=== PATIENT | male | born 1965 | race Caucasian/White ===

== ENCOUNTER 2017-08-18 07:30 | Day surgery (SDC) | payer BC ==
[~2017-08-18] VITALS: Ht 193 cm; Wt 146.5 kg
[~2017-08-18 07:30] MED LIST: Prinivil10 MG PO
== END 2017-08-18 10:08 | disposition home or self-care (01) ==
LOC: ORSCSDS 07:30
PROVIDERS: Internal Medicine Gastroenterology
PROC: 0DBH8ZX Excision of Cecum, Via Natural or Artificial Opening Endoscopic, Diagnostic (ICD-10-PCS; principal; 2017-08-18 09:00)
PROC: 0DBK8ZX Excision of Ascending Colon, Via Natural or Artificial Opening Endoscopic, Diagnostic (ICD-10-PCS; principal; 2017-08-18 09:00)
DX: Z12.11 Encounter for screening for malignant neoplasm of colon (principal); D12.0 Benign neoplasm of cecum; K63.5 Polyp of colon; K64.8 Other hemorrhoids; K57.30 Diverticulosis of large intestine without perforation or abscess without bleeding; G47.33 Obstructive sleep apnea (adult) (pediatric); I10 Essential (primary) hypertension; E66.9 Obesity, unspecified; Z68.39 Body mass index [BMI] 39.0-39.9, adult; Z79.899 Other long term (current) drug therapy
CPT/HCPCS: 88305; J1885; J2250; J7120

== ENCOUNTER → 2017-12-23 | Outpatient (CLI) | payer BC | END | disposition home or self-care (01) | LOC: PLD 13:20 → LAB SHORT 13:20 | DX: L82.1 Other seborrheic keratosis (principal) | CPT/HCPCS: 88305 ==

== ENCOUNTER → 2021-01-28 | Outpatient (CLI) | payer BC ==
[~2021-01-28] MED LIST changes: +DILT30 PO; +ELIQUIS5 M3 PO; +METOPROL SUC TAB 50M PO
== END | disposition home or self-care (01) ==
LOC: LAB SHORT 18:18 → LAB 18:18
DX: R55 Syncope and collapse (principal)
CPT/HCPCS: 87086

== ENCOUNTER 2021-02-06 10:16 | Emergency (ER) | payer BC ==
[~2021-02-06] VITALS: Ht 195.6 cm; Wt 154.2 kg
[~2021-02-06 10:16] MED LIST changes: -DILT30 PO; -ELIQUIS5 M3 PO; -METOPROL SUC TAB 50M PO
[2021-02-06 11:20] LABS: BASOPHILS ABSOLUTE AUTO 0.03 K/mm3 (0.00-0.23); BASOPHILS PERCENT AUTO 1 % (0-2); EOSINOPHILS ABSOLUTE AUTO 0.06 K/mm3 (0.00-0.68); EOSINOPHILS PERCENT AUTO 1 % (0-6); Hematocrit 42.9 % (37.0-53.0); Hemoglobin 14.9 g/dL (13.5-17.5); IMMATURE GRAN ABSOLUTE AUTO 0.01 K/mm3 (0.00-0.10); IMMATURE GRAN PERCENT AUTO 0 % (0-1); LYMPHOCYTES ABSOLUTE AUTO 1.85 K/mm3 (0.84-5.20); LYMPHOCYTES PERCENT AUTO 33 % (21-46); MONOCYTES ABSOLUTE AUTO 0.57 K/mm3 (0.16-1.47); MONOCYTES PERCENT AUTO 10 % (4-13); Mean Corpuscular HGB Conc 34.7 g/dL (31.5-36.5); Mean Corpuscular Volume 92 fL (80-100); Mean Platelet Volume 12.2 fL (9.1-12.4); NEUTROPHILS ABSOLUTE AUTO 3.03 K/mm3 (1.96-9.15); NEUTROPHILS PERCENT AUTO 55 % (41-73); Platelet Count 210 K/mm3 (150-400); RDW Standard Deviation 43.3 fL (35.1-46.3); Red Blood Cell Count 4.66 M/mm3 (4.30-5.90); White Blood Cell Count 5.55 K/mm3 (4.00-11.30)
[2021-02-06] MEDS ORDERED: DILT30 PO (11:47)
[2021-02-06] MEDS ORDERED: ELIQUIS5 M3 PO (11:48)
[2021-02-06] MEDS ORDERED: METOPROL SUC TAB 50M PO (11:49)
[2021-02-06 11:53] LABS: Alanine Aminotransfer (ALT/SGP 45 U/L (12-78); Albumin, Blood 3.5 g/dL (3.4-5.0); Albumin/Globulin Ratio 1.1 (0.8-1.8); Alk Phos 55 U/L (50-136); Anion Gap 5 mmol/L (6-16); Aspartate Aminotrans (AST/SGOT 37 U/L (12-37); Blood Urea Nitrogen 19 mg/dL (8-24); Bun/Creatinine Ratio 18.6 (12.0-20.0); CO2, Blood 25 mmol/L (21-32); Calcium, Blood 8.6 mg/dL (8.5-10.1); Chloride, Blood 112 mmol/L (98-108); Creatinine, Blood 1.02 mg/dL (0.60-1.20); Free Thyroxine 1.13 ng/dL (0.70-1.60); Globulin, Blood 3.2 g/dL (2.2-4.0); Glomerular Filtration Rate >60 (60-); Glucose, Blood 93 mg/dL (70-99); Potassium, Blood 5.1 mmol/L (3.5-5.5); Sodium, Blood 142 mmol/L (136-145); Thyroid Stimulating Hormone 0.575 uIU/mL (0.360-4.800); Total Protein, Blood 6.7 g/dL (6.4-8.2); Troponin I <0.015 ng/mL (0.000-0.040)
== END 2021-02-06 14:04 | disposition home or self-care (01) ==
LOC: ER 10:16
PROVIDERS: Emergency Medicine
DX: I48.91 Unspecified atrial fibrillation (principal); Z79.01 Long term (current) use of anticoagulants; Z79.899 Other long term (current) drug therapy
CPT/HCPCS: 36415; 71045; 80053; 83880; 84439; 84443; 84484; 85025; 93005; 93010; 99284-25

== ENCOUNTER 2022-06-16 12:05 | Day surgery (SDC) | payer BC ==
[~2022-06-16] VITALS: Ht 195.6 cm; Wt 148.3 kg
[~2022-06-16 12:05] MED LIST changes: +DILT30 PO; +ELIQUIS5 M3 PO; +METOPROL SUC TAB 50M PO
[2022-06-16] MEDS ORDERED: ELIQUIS5 M2 PO (12:43)
[2022-06-16] MEDS ORDERED: METO100ER PO (12:44)
--- NOTE | 2022-06-16 14:03 | NUR ---
06/16/22 1403 SINAN SUAREZ 15MLS OF BUPIVACAINE 0.25% MIXED WITH 15MLS OF BUPIVACAINE 0.75% TO CREATE 30MLS OF BUPIVACAINE 0.5%. 0.15MG OF EPI ADDED TO 30MLS OF BUPIVACAINE 0.5% TO CREATE A LOCAL SOLUTION OF BUPIVACAINE 0.5% WITH EPI 1:200,000.
--- NOTE | 2022-06-16 16:37 | NUR ---
06/16/22 1637 Ge Loving PT REPORTED 7/10 PAIN UPON DISCHARGE. HE STATES PAIN IS TOLERABLE AND EXPRESSED READINESS TO RETURN HOME. PT'S O2 SATURATION DROPPED INTO 80'S BRIEFLY ON SEVERAL OCCASIONS IN STEP DOWN. HIS O2 SATURATION RETURNED TO >94% SPONTANEOUSLY EACH TIME. HE WAS GIVEN AN INCENTIVE SPIROMETER AND ENCOURAGED TO DEEP BREATHE. HIS O2 REMAINED WNL FOLLOWING USE OF INCENTIVE SPIROMETER.
== END 2022-06-16 16:30 | disposition home or self-care (01) ==
LOC: ORSCSDS 12:05
PROVIDERS: Podiatrist Foot & Ankle Surgery
PROC: 0QBP0ZZ Excision of Left Metatarsal, Open Approach (ICD-10-PCS; principal; 2022-06-16 13:30)
PROC: 0SGJ04Z Fusion of Left Tarsal Joint with Internal Fixation Device, Open Approach (ICD-10-PCS; principal; 2022-06-16 13:30)
PROC: 0QSR04Z Reposition Left Toe Phalanx with Internal Fixation Device, Open Approach (ICD-10-PCS; principal; 2022-06-16 13:30)
DX: M21.612 Bunion of left foot (principal); M21.622 Bunionette of left foot; M77.42 Metatarsalgia, left foot; R60.0 Localized edema; M79.672 Pain in left foot; I10 Essential (primary) hypertension; I48.91 Unspecified atrial fibrillation; G47.33 Obstructive sleep apnea (adult) (pediatric); Z79.899 Other long term (current) drug therapy; E66.9 Obesity, unspecified; Z68.38 Body mass index [BMI] 38.0-38.9, adult; Z79.01 Long term (current) use of anticoagulants
CPT/HCPCS: A9270; C1713; J0171; J0690; J1100; J1885; J2370; J2405; J2704; J3010; J7120

== ENCOUNTER 2025-02-18 17:00 | Emergency (ER) | payer BC ==
[~2025-02-18] VITALS: Ht 193 cm; Wt 138.8 kg
[~2025-02-18 17:00] MED LIST changes: +ELIQUIS5 M2 PO; +METO100ER PO
[2025-02-18 17:39] LABS: BASOPHILS ABSOLUTE AUTO 0.03 K/mm3 (0.00-0.23); BASOPHILS PERCENT AUTO 1 % (0-2); EOSINOPHILS ABSOLUTE AUTO 0.11 K/mm3 (0.00-0.68); EOSINOPHILS PERCENT AUTO 2 % (0-6); Hematocrit 43.6 % (37.0-53.0); Hemoglobin 14.3 g/dL (13.5-17.5); IMMATURE GRAN ABSOLUTE AUTO 0.01 K/mm3 (0.00-0.10); IMMATURE GRAN PERCENT AUTO 0 % (0-1); LYMPHOCYTES ABSOLUTE AUTO 2.42 K/mm3 (0.84-5.20); LYMPHOCYTES PERCENT AUTO 38 % (21-46); MONOCYTES ABSOLUTE AUTO 0.78 K/mm3 (0.16-1.47); MONOCYTES PERCENT AUTO 12 % (4-13); Mean Corpuscular HGB Conc 32.8 g/dL (31.5-36.5); Mean Corpuscular Volume 92 fL (80-100); NEUTROPHILS ABSOLUTE AUTO 3.05 K/mm3 (1.96-9.15); NEUTROPHILS PERCENT AUTO 48 % (41-73); NRBC ABSOLUTE 0.00 K/mm3 (0.00-0.02); NRBC Auto 0.0 /100 WBC (0.0-0.2); Platelet Count 243 K/mm3 (150-400); RDW Coefficient Variation 13.4 % (11.7-14.2); RDW Standard Deviation 45.6 fL (35.1-46.3)
[2025-02-18 18:11] LABS: Alanine Aminotransfer (ALT/SGP 24.0 U/L (12-78); Albumin, Blood 3.8 g/dL (3.4-5.0); Albumin/Globulin Ratio 1.2 (0.8-1.8); Anion Gap 8.0 mmol/L (3-11); Aspartate Aminotrans (AST/SGOT 20.0 U/L (12-37); Bilirubin, Total 0.5 mg/dL (0.1-1.0); Blood Urea Nitrogen 22.0 mg/dL (8-24); CO2, Blood 27.0 mmol/L (21-32); Calcium, Blood 9.2 mg/dL (8.5-10.1); Chloride, Blood 111.0 mmol/L (98-108); Creatinine, Blood 1.28 mg/dL (0.60-1.20); Globulin, Blood 3.3 g/dL (2.2-4.0); Glucose, Blood 105.0 mg/dL (70-99); Potassium, Blood 4.6 mmol/L (3.5-5.5); Sodium, Blood 141.0 mmol/L (136-145); Total Protein, Blood 7.1 g/dL (6.4-8.2)
[2025-02-18] MEDS ORDERED: Propofol 10mg/ml 20 ml Vial (Procedural) IV SCH (18:45)
[2025-02-18] MEDS ORDERED: NS 1,000 ML IV SCH (18:45)
[2025-02-18 19:00] VITALS: BP 136/78
== END 2025-02-18 20:57 | disposition home or self-care (01) ==
LOC: ER 17:00
PROVIDERS: Student in an Organized Health Care Education/Training Program
DX: I48.91 Unspecified atrial fibrillation (principal); Z79.01 Long term (current) use of anticoagulants
CPT/HCPCS: 80053; 83735; 85025; 92960; 93005; 93010; 99285-25; J2704